=== PATIENT | female | born 1970 | race Caucasian/White ===

== ENCOUNTER → 2017-01-11 | Day surgery (SDC) | payer OTHER ==
[~2017-01-11] MED LIST: AMITRIPTYLINE H25 MG PO; IMITREX50 MG PO; LEVOTHYROXINE150 MC1 PO; OMEPRAZOLE20 M1 PO; PROZAC40 M1 PO; REQUIP1 MG PO; ROBAXIN 750750 M1; TOPAMAX50 MG; VITAMIN B122500 MC1; VITAMIN D2000 UNIT PO
--- NOTE | ~2017-01-11 | EKG ---
PATIENT: LUIS MAST UNIT #: [id number] Ventricular Rate: 50 BPM Atrial Rate: 50 BPM P-R Interval: 140 ms QRS Duration: 86 ms Q-T Interval: 502 ms QTC Calculation(Bezet): 457 ms P [place]: 42 degrees Calculated R [place]: -2 degrees Calculated T [place]: 28 degrees Diagnosis Line: Sinus bradycardia Diagnosis Line: Low voltage QRS Diagnosis Line: Nonspecific ST abnormality Diagnosis Line: Abnormal ECG Diagnosis Line: No previous ECGs available Diagnosis Line: Confirmed by MACK WELLS MD ([id number]) on Diagnosis Line: 01/11/2017 9:20:41 PM INTERPRETING MD: MELVA
--- NOTE | ~2017-01-11 | OR ---
Unit #: [id number] #: [id number] Patient: MARLENE AL [id number] [address] [place], [place] [address] [id number] O MR#: [id number] NAME: MARLENE AL ROOM: Date of Procedure: 01/11/2017 Admission Date: 01/11/2017 Surgeon: Larry Garcia M.D. : 1970 Attending Physician: Larry Garcia M.D. Referring Physician: Larry Garcia M.D. Primary Care Physician: Joyce Montes A.P.R.N. OPERATIVE REPORT PREOPERATIVE DIAGNOSES 1. 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 2. Chronic pain syndrome. POSTOPERATIVE DIAGNOSES 1. 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 2. Chronic pain syndrome. PROCEDURES PERFORMED 1. Implantation of SynchroMed II programmable intrathecal pump. 2. Implantation of Ascenda catheter. 3. Physician filling of pump. 4. Fluoroscopy. SURGICAL INDICATION AND RATIONALE Ms. Marlene Al is a pleasant 46-year-old female, who is a [employer], who works in a [place] and part of her job involves lifting heavy patients. 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 The patient has been on chronic opioids for close with decade now for chronic pain management. The patient has had various other conservative treatment options including nonsteroidal anti-inflammatory medications, muscle relaxants, oral opioid medication, injection such as epidurals and radiofrequency ablation. The patient is not a candidate for surgical intervention at this time. The patient did have a successful epidural pain pump trial using hydromorphone in which her pain was about 90% control. The patient has undergone an extensive education process with me regarding the risks, benefits, and alternatives available, in which I also discussed with the patient, the consent decree and all her questions regarding this consent's decree were answered to her satisfaction. The patient also had an education process with Joyce Aquino, who was a ict sales representative of [employer], was also discussed the various risks, benefits, and alternatives available including the consent decree in great detail with the patient. Once again, all the patient's questions were answered to her satisfaction. I used a teach back method to ascertain that she understood my explanations. The patient also has had a cardiac clearance along with a psychological evaluation, both of which did not show any contraindications. DESCRIPTION OF PROCEDURE After obtaining full informed consent and after discussion with the patient of possible complications including infection, bleeding, Unit #: [id number] #: [id number] Patient: MARLENE AL paralysis, mild headaches, , and other perioperative complications were discussed with the patient and consent was obtained in front of the preoperative nurse. The patient was then taken back to the operating room, where a time-out was done in accordance to the joint commission guidelines where the patient's identity, procedure, and site of procedure were verified. Then, general anesthesia was induced by the anesthesiologist and the patient was positioned in the prone position and prepped and draped in the usual fashion. All pressure points were padded under the supervision of the anesthesiologist. After the patient was prepped and draped, then I visualized the patient's spine under fluoroscopy and identified the L2-L3 interspace. After the skin target sites were anesthetized, I made an incision using a #10 blade and with the help of the Bovie, I was able to undermine the subcutaneous tissue to fashion an area, where I could place the Tuohy needle to access the intrathecal space. Once this was done, I passed a 17-gauge Tuohy needle into the intrathecal space and achieved spinal fluid at first pass, which was cleared. I then navigated an Ascenda catheter through the Tuohy needle to reach the upper border of T7 then under live fluoroscopic view, both in AP and lateral views. I then removed the Tuohy needle along with stylet of the catheter and then I placed a special anchoring device to anchor this catheter to the interspinous ligament. This anchor was then further secured using 3-0 Prolene sutures. This incision was then copiously irrigated with irrigant. I then anesthetized the skin in the left side of the back and after localizing this area, I made an incision measuring about 5.5 cm in length. Once again with the help of the Bovie, I was able to fashion a pocket which would house the reservoir of the pump. Once this was created, this pocket was copiously irrigated with irrigant and all bleeders were stopped. I then used a tunneling device to tunnel the catheter from the lumbar incision into the pocket. This catheter was then cut to size and then I used a special piece of catheter to connect the intrathecal catheter using a special locking mechanism. The opposite end of this catheter was then secured to the pump, which I had filled with hydromorphone at a concentration of 5 mg/mL, totalling 20 mL. After this was done, I accessed the side port of the pump using a 24-gauge Messina needle. I was able to withdraw spinal fluid, which then determined that this entire catheter and pump system were intact. I then sprinkled the 2 incisions with vancomycin powder totaling 500 mg and the pump was then secured into the pocket. I then sutured the pump to the underlying tissue using the 4 anchors. I used 3-0 Prolene sutures. Once this was done, the 2 incisions were carefully inspected and closed using interrupted 3-0 Vicryl sutures in 2 layers and the skin was approximated with glenis. I used a Telfa and Tegaderm dressing. The patient was then brought back to the recovery room for neurological monitoring. PLAN OF CARE The patient had an uneventful recovery and was discharged home neurologically intact with plans to return to my office in 7 days to have her glenis removed. The patient's pump was started at a daily dose of 0.2998 mg per day. The patient is allowed to have a patient physical therapy instructor at 0.02 mg with a 2-hour lockout and she has 2 activations per day. This means the 2 activations, the patient would receive a total of 0.3394 mg a day. The patient's Medtronic catheter serial #[id number] and the SynchroMed pump serial #[id number]. I also discussed the course of the procedure with her after the surgery was completed. Dictated by... Larry Garcia M.D. Unit #: [id number] #: [id number] Patient: MARLENE AL/yandel TD: 01/12/2017 05:32 JOB #: [id number] OPERATIVE REPORT Page 1 of 1 X Larry Garcia MD PROCEDURE OPERATIVE NOTE
[2017-01-11 08:02] LABS: CALCIUM SERUM 9.1 mg/dL (8.4-10.2); CREATININE SERUM 0.8 mg/dL (0.6-1.4); GLOM FILT RATE Estimated 87.9 mL/min (>60); POTASSIUM 3.6 mmol/L (3.5-5.1)
== END | disposition home or self-care (01) ==
LOC: CSUR 07:05
PROVIDERS: Specialist
DX: G89.4 Chronic pain syndrome (principal); M51.36 Other intervertebral disc degeneration, lumbar region; M53.87 Other specified dorsopathies, lumbosacral region; K21.9 Gastro-esophageal reflux disease without esophagitis; E89.0 Postprocedural hypothyroidism; F17.210 Nicotine dependence, cigarettes, uncomplicated; Z79.899 Other long term (current) drug therapy; Z90.49 Acquired absence of other specified parts of digestive tract; Z98.890 Other specified postprocedural states
CPT/HCPCS: 77003; 80048; 84703; 93005; C1772; J0330; J0690; J1100; J1170; J2250; J2405; J2710; J3010; J3370